=== PATIENT | female | born 1950 | race Caucasian/White ===

== ENCOUNTER 2018-12-18 16:00 | Inpatient (IN) | payer OTHER ==
[~2018-12-18] VITALS: Ht 160 cm; Wt 111.7 kg
[~2018-12-18 16:00] MED LIST: ATI0.5 PO; CIPROFLOXACIN500 MG PO; COZ50 PO; COZAAR50 MG PO; ECO81 PO; GLU5 PO; GLYBURIDE5 MG PO; LAC PO; LEVOTHYROXINE0.1 M2 PO; LIPI10 PO; METFORMIN HCL1000 MG PO; METFORMIN HCL500 MG PO
[2018-12-18 16:44] LABS: CALCIUM 9.1 mg/dL (8.5-10.1); CARBON DIOXIDE 17.9 mmol/L (21-32); CREATININE SERUM 1.6 mg/dL (0.6-1.0); POTASSIUM SERUM 5.1 mmol/L (3.5-5.1)
[2018-12-18 16:48] LABS: BILIRUBIN TOTAL 1.16 mg/dL (0.20-1.00); TOTAL PROTEIN, SERUM 7.2 g/dL (6.4-8.2)
[2018-12-18 16:49] LABS: ALBUMIN 2.7 g/dL (3.4-5.0)
[2018-12-18 17:07] LABS: BASOPHIL % 0 % (0-2); PLATELET COUNT 126 x10^3mcL (130-400); RED CELL DISTRIBUTION WIDTH 15.8 % (11.5-14.5)
[2018-12-18 18:02] LABS: microscopic required? YES; urine erythrocyte 1+ (NEGATIVE)
[2018-12-18 21:03] LABS: MAGNESIUM 1.5 mg/dL (1.8-2.4); PHOSPHOROUS 1.9 mg/dL (2.5-4.9)
[2018-12-18 21:07] LABS: CHOLESTEROL/HDL RATIO 7.9
[2018-12-18 22:00] VITALS: BP 122/57
[2018-12-18 22:10] LABS: FREE T4 1.79 ng/dL (0.76-1.46); FREE THYROXINE INDEX 4.2 ug/dL (1.4-4.5)
[2018-12-18 22:11] LABS: T3 TOTAL 0.84 ng/mL
[2018-12-18 22:14] VITALS: BP 122/57
[2018-12-18] MEDS ORDERED: GLU500 PO (22:42)
[2018-12-19] VITALS (7 sets, daily range): BP systolic 92–129; BP diastolic 46–71
[2018-12-19 06:41] LABS: BASOPHIL % 0.1 % (0-2)
[2018-12-19 06:48] LABS: PLATELET COUNT 129 x10^3mcL (130-400); RED CELL DISTRIBUTION WIDTH 15.9 % (11.5-14.5)
[2018-12-19 07:07] LABS: CALCIUM 7.7 mg/dL (8.5-10.1); CREATININE SERUM 1.7 mg/dL (0.6-1.0); MAGNESIUM 1.6 mg/dL (1.8-2.4); PHOSPHOROUS 2.8 mg/dL (2.5-4.9); POTASSIUM SERUM 4.7 mmol/L (3.5-5.1)
[2018-12-19] MEDS ORDERED: GOOD SENSE OMEP20 MG PO (11:21)
[2018-12-20 05:41] VITALS: BP 144/67
[2018-12-20 07:05] LABS: PLATELET COUNT 125 x10^3mcL (130-400); RED CELL DISTRIBUTION WIDTH 16.8 % (11.5-14.5)
[2018-12-20 07:23] LABS: CALCIUM 7.8 mg/dL (8.5-10.1); CARBON DIOXIDE 17.1 mmol/L (21-32); CREATININE SERUM 1.3 mg/dL (0.6-1.0); MAGNESIUM 1.7 mg/dL (1.8-2.4); PHOSPHOROUS 2.6 mg/dL (2.5-4.9); POTASSIUM SERUM 4.2 mmol/L (3.5-5.1)
[2018-12-20 09:57] VITALS: BP 142/61
[2018-12-20 11:27] LABS: BAND NEUTROPHIL 5 % (0-10); BASOPHIL 0 % (0-2); MONOCYTE 2 % (0-7); SEGMENTED NEUTROPHILS 89 % (37-75)
[2018-12-20 11:28] LABS: PLATELET MORPHOLOGY PLATELETS DECREASED; rbc morphology (normal/abnorm) ABNORMAL (NORMAL)
[2018-12-20 12:54] VITALS: BP 151/78
[2018-12-20 17:23] VITALS: BP 157/84
[2018-12-20 21:40] VITALS: BP 152/71
[2018-12-21] VITALS (7 sets, daily range): BP systolic 147–163; BP diastolic 72–86
[2018-12-21 06:29] LABS: CALCIUM 8.5 mg/dL (8.5-10.1); CARBON DIOXIDE 20.6 mmol/L (21-32); MAGNESIUM 1.5 mg/dL (1.8-2.4); POTASSIUM SERUM 4.4 mmol/L (3.5-5.1)
[2018-12-21 06:35] LABS: BASOPHIL % 0.4 % (0-2); PLATELET COUNT 156 x10^3mcL (130-400); RED CELL DISTRIBUTION WIDTH 16.5 % (11.5-14.5)
[2018-12-21] MEDS ORDERED: AMERINET CHOICE1 PD2 IV (14:11)
[2018-12-21] MEDS ORDERED: IPRATROPIUM BROM3 M2 HHN ×2 (14:11→14:12)
[2018-12-21] MEDS ORDERED: TYL325 PO (14:12)
[2018-12-21] MEDS ORDERED: APAP/HYDROCODON1 T13 PO (14:12)
[2018-12-21] MEDS ORDERED: ZOFI IV (14:13)
[2018-12-21] MEDS ORDERED: L20I IV (14:13)
[2018-12-21] MEDS ORDERED: BUDESONIDE0.5 MG/2 M IH (14:13)
[2018-12-21] MEDS ORDERED: LAC30L PO (14:13)
== END 2018-12-21 19:50 | disposition short-term general hospital (02) | DRG 871 ==
LOC: ED 16:00 → DU 20:28
PROVIDERS: Emergency Medicine; Family Medicine; Internal Medicine; ADMIT Internal Medicine Pulmonary Disease
DX: A41.9 Sepsis, unspecified organism (principal); N17.0 Acute kidney failure with tubular necrosis; E43 Unspecified severe protein-calorie malnutrition; J96.01 Acute respiratory failure with hypoxia; N39.0 Urinary tract infection, site not specified; J45.901 Unspecified asthma with (acute) exacerbation; D68.69 Other thrombophilia; E87.2 Acidosis; E03.9 Hypothyroidism, unspecified; E11.65 Type 2 diabetes mellitus with hyperglycemia; E86.0 Dehydration; I10 Essential (primary) hypertension; R16.0 Hepatomegaly, not elsewhere classified; K21.9 Gastro-esophageal reflux disease without esophagitis; F41.9 Anxiety disorder, unspecified; E83.42 Hypomagnesemia; E83.39 Other disorders of phosphorus metabolism; E78.5 Hyperlipidemia, unspecified; Z79.84 Long term (current) use of oral hypoglycemic drugs
CPT/HCPCS: 36600; 82962; 83880; 84439; 87804; J0696; J1200; J1815; J1885; J1940; J1956; J2543; J2765; J7030; J7613; J7620; J7626; J7644; Q0092